=== PATIENT | male | born 1990 ===

== ENCOUNTER 2024-09-15 13:44 | Emergency (ER) | payer OTHER, SELFPAY ==
[2024-09-15 13:48] VITALS: BP 117/83
[2024-09-15 14:00] VITALS: BP 112/81
[2024-09-15 14:08] VITALS: BMI 23.8
--- NOTE | 2024-09-15 15:12 | ED.GENMED ---
History of Present Illness
<STEPHANIE Yan - Last Filed: 09/16/24 16:02>
General
Chief Complaint: Male Genito-Urinary Symptoms
Source: patient
Exam Limitations: none
Time Seen by Provider: 09/15/24 14:47
Nursing documentation reviewed up to this point in time: agreed with
History of Present Illness
History of Present Illness:
33 yr old male presents to the ED for evaluation. Patient speaks German and language line was used for translation. Patient complains of pain to the left thigh left lateral hip/left groin that wraps urinalysis from for the past several days. He
denies any actual injury but was on a bike 4 days ago and symptoms seem to start after that. He denies any actual trauma. Pain has become increasingly worse to the point where patient can barely walk. He denies any fever/chills/swelling.
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 No back pain.
Review of Systems
<STEPHANIE Yan - Last Filed: 09/16/24 16:02>
Review of Systems
Allergies reviewed?: Yes
All Other Systems: ROS reviewed and negative except as documented in HPI and ROS
Constitutional: Reports no symptoms
EENT: Reports no symptoms
Respiratory: Reports no symptoms
Cardiac: Reports no symptoms
ABD/GI: Reports no symptoms
Musculoskeletal: Reports other (left hip pain /thigh pain /groin pain )
Skin: Reports no symptoms
Psychiatric: Reports no symptoms
Phy Exam
<STEPHANIE Yan - Last Filed: 09/16/24 16:02>
General Physical Exam
General Presentation: no apparent distress
General age: appears stated age
General Skin: warm and dry
General Habitus: normal
General Hydration: appears well hydrated
Neurological Exam
Neurological Exam: alert and oriented x3
Musculoskeletal Exam
Musculoskeletal Exam: other (+ Strong pulses to left lower extremity , ?minimal swelling to left thigh,+ tenderness to left groin and pain with full abduction of left hip; pain with lifting leg off the stretcher and even bending the knee)
Course
<STEPHANIE Yan - Last Filed: 09/16/24 16:02>
Orders/Labs/Results
Orders:
Orders
09/15/24 15:34
Femur, Left 2 View [CR Femur - Left Min 2 Vw] Urgent
Comment:
Reason For Exam: pain
Hip, Left 2-3 Views [CR Hip - LT w/wo Pel 2-3 Vw*] Urgent
Comment:
Reason For Exam: pain
Include a pelvis x-ray?: Yes
Venous Doppler Lwr Ext Left [US Periph Venous LOWER Ext LT] Urgent
Comment:
Reason For Exam: pain
09/15/24 16:53
CT Lower Ext W/iv Cont Lt Urgent
Comment:
Reason For Exam: atraumatic left hip/thigh pain mild swelling
09/15/24 16:54
IV Insert/Care/Rem.- Treatment PRN
Ketorolac [Toradol] 15 mg IV NOW STA
09/15/24 17:03
CPK [Creatine Phosphokinase] Urgent
CRP [C-Reactive Protein] Urgent
Complete Blood Count/With Diff Urgent
Comprehensive Metabolic Panel Urgent
ESR [Erythrocyte Sed Rate] Urgent
Lyme Progressive Urgent
Comment: ADD ON
Rheumatoid Agglutinin Urgent
Comment: ADD ON
Uric Acid Urgent
09/15/24 20:21
Add On- LAB Urgent
Tests Added?: lyme progressive, taco,rf,uric acid
Abnormal Lab Results
09/15/24
17:03
Neutrophils % 77.0 H %
(42.2-75.2)
Lymphocytes % 14.2 L %
(20.5-51.1)
ESR 61 H mm/hour
(0-20)
Glucose 112 H mg/dl
(70-99)
C-Reactive Protein 140.20 H mg/L
(0.0-10.00)
09/15/24 17:03
09/15/24 17:03
Vital Signs
Initial and Last Documented VS:
Initial Vital Signs
Temp Pulse Resp BP Pulse Ox
97.5 F 105 18 117/83 100
09/15/24 13:48 09/15/24 13:48 09/15/24 13:48 09/15/24 13:48 09/15/24 13:48
Last Documented Vital Signs
Temp Pulse Resp BP Pulse Ox
97.5 F 96 18 114/67 97
09/15/24 13:48 09/15/24 20:32 09/15/24 20:32 09/15/24 20:32 09/15/24 20:32
Auto Battery Builder consulted with Physician
Auto Battery Builder consulted with physician?: Yes
Name of Physician Consulted: Braeden
<Fortunato Deras MD - Last Filed: 09/15/24 21:32>
Orders/Labs/Results
Orders:
Orders
09/15/24 15:34
Femur, Left 2 View [CR Femur - Left Min 2 Vw] Urgent
Comment:
Reason For Exam: pain
Hip, Left 2-3 Views [CR Hip - LT w/wo Pel 2-3 Vw*] Urgent
Comment:
Reason For Exam: pain
Include a pelvis x-ray?: Yes
Venous Doppler Lwr Ext Left [US Periph Venous LOWER Ext LT] Urgent
Comment:
Reason For Exam: pain
09/15/24 16:53
CT Lower Ext W/iv Cont Lt Urgent
Comment:
Reason For Exam: atraumatic left hip/thigh pain mild swelling
09/15/24 16:54
IV Insert/Care/Rem.- Treatment PRN
Ketorolac [Toradol] 15 mg IV NOW STA
09/15/24 17:03
CPK [Creatine Phosphokinase] Urgent
CRP [C-Reactive Protein] Urgent
Complete Blood Count/With Diff Urgent
Comprehensive Metabolic Panel Urgent
ESR [Erythrocyte Sed Rate] Urgent
Lyme Progressive Urgent
Comment: ADD ON
Rheumatoid Agglutinin Urgent
Comment: ADD ON
Uric Acid Urgent
09/15/24 20:21
Add On- LAB Urgent
Tests Added?: lyme progressive, taco,rf,uric acid
Abnormal Lab Results
09/15/24
17:03
Neutrophils % 77.0 H %
(42.2-75.2)
Lymphocytes % 14.2 L %
(20.5-51.1)
ESR 61 H mm/hour
(0-20)
Glucose 112 H mg/dl
(70-99)
C-Reactive Protein 140.20 H mg/L
(0.0-10.00)
09/15/24 17:03
09/15/24 17:03
Vital Signs
Initial and Last Documented VS:
Initial Vital Signs
Temp Pulse Resp BP Pulse Ox
97.5 F 105 18 117/83 100
09/15/24 13:48 09/15/24 13:48 09/15/24 13:48 09/15/24 13:48 09/15/24 13:48
Last Documented Vital Signs
Temp Pulse Resp BP Pulse Ox
97.5 F 96 18 114/67 97
09/15/24 13:48 09/15/24 20:32 09/15/24 20:32 09/15/24 20:32 09/15/24 20:32
<STEPHANIE Yan - Last Filed: 09/16/24 16:02>
MDM/Problems Addressed
Differential Diagnosis Includes:
Not limited to DVT, muscle strain, bursitis tendinitis less likely fracture
MDM/Problems Addressed:
Ultrasound negative.
Xrays neg for acute findings.
Patient examined by ED physician. Will check blood work including sed rate CRP however no clinical findings consistent with infection on exam. In addition will order CT lower extremity IV contrast.
<STEPHANIE Yan - Last Filed: 09/16/24 16:02>
*Radiology
Radiology exam reviewed: radiology read reviewed
*Pulse Oximetry
Patient hypoxic: no
*Critical Care Note
Total Time (30-74mins, 75-104mins- exclusive of procedures): Not Applicable
ED Attending Note
<STEPHANIE Yan - Last Filed: 09/16/24 16:02>
-
Portions of this chart may have been created with voice recognition software.� Occasional wrong word or��sound alike� substitutions may have occurred due to the inherent limitations of voice recognition software.
<Fortunato Deras MD - Last Filed: 09/15/24 21:32>
ED Attending Note
Patient seen and examined by attending physician: Yes
I performed the substantive portion of visit, reviewed & personally made and approve the management plan that is documented in note by myself or TONYA.: Yes
ED Attending Note:
33-year-old male started 4 days ago with left hip and leg pain. Severe pain with most movement. Increased pain with ambulation. No distal numbness tingling or weakness. No fever. He did take a bike ride prior to this. On exam patient
GENERAL: Alert and oriented in no apparent distress
CARDIAC: Regular rate and rhythm
LUNGS: No respiratory distress
ABDOMEN: Soft, without focal tenderness or distention
NEUROLOGICAL: Alert and oriented , grossly non-focal
SKIN: Warm and dry, no rash or lesion, no discoloration, skin intact.
MUSCULOSKELETAL: No edema,no deformity.Good color. Good distal pulses and color. Distal motor or sensory neurovascular intact. Left calf and lower leg grossly normal. Questionable mild swelling to the left thigh. However no point tenderness.
No erythema or warmth. Some pain with hip rotation but mostly laterally. Pain with hip flexion. No buttock tenderness.
PSYCH: Normal and appropriate interaction.
Impression is left leg pain. Highly doubt acute vascular issue. Suspect bursitis tendinitis possible iliotibial band issue. However with degree of pain and questionable swelling we will check ESR CRP and a CT scan.
Large left hip effusion. No risk factors for septic arthritis. No white count no fever however significant ESR and CRP elevation. Discussed with orthopedics. Patient was recommended to stay in the hospital for arthrocentesis tomorrow. He
refuses to stay and is aware of the risk but will return in the morning for this procedure. I did make IR aware that he would need an arthrocentesis tomorrow
Discharge Plan
Departure
Patient Disposition: Home (Routine Discharge)
Date of Disposition: 09/15/24
Time of Disposition: 20:22
Patient with high blood pressure during this ER visit?: Yes
Discharge Problem:
Left hip effusion
Instructions: BLOOD PRESSURE
Prescriptions:
No Action
No Current Medications
0
Referrals:
Leonardo Loving MD [Family Provider] -
Activity Restrictions/Additional Instructions:
Return early tomorrow morning to get the left hip drainage arranged.
Please return sooner with increasing pain any fever etc.
Interventions
Interventions:
*Risk Screen - Suicide Last Done: 09/15/24 13:48
*General Assessment Last Done: 09/15/24 13:48
*Neglect/Abuse Screening Last Done: 09/15/24 13:48
*ED- Fall Risk Assessment Last Done: 09/15/24 14:10
*Nursing Disposition Last Done: 09/15/24 20:38
ED-Male Genitourinary Assessment Last Done: 09/15/24 14:09
Discharge Date and Time
Discharge Date/Time: 09/15/24 20:38
Print Language: EGYPTIAN
[2024-09-15] MEDS: TORADOL 15 MG IV (17:05)
[2024-09-15 17:08] VITALS: BP 137/83
[2024-09-15 17:18] LABS: % Basophils 0.4 % (0-2); % Eosinophils 0.5 % (0-6); % Immature Granulocytes 0.4 % (0-0.5); % Lymphocytes 14.2 % (20.5-51.1); % Monocytes 7.5 % (1.7-9.3); Absolute Lymphocytes 1.2 10^3/uL (1.2-3.4); Absolute Monocytes 0.6 10^3/uL (0.1-0.6); Absolute Neutrophils 6.2 10^3/uL (1.4-6.5); Hematocrit 42.2 % (39.0-52.0); Hemoglobin 14.8 g/dL (13.0-18.0); Mean Corp Hgb Conc. 35.1 g/dL (33.0-37.0); Mean Corpuscular Hgb 30.9 pg (27.0-31.0); Mean Corpuscular Volume 88.1 fL (80.0-94.0); Mean Platelet Volume 9.4 fL (7.4-10.4); Nucleated Red Blood Cells % 0 % (-); Platelet Count 229 10^3/uL (130-400); Red Blood Cell Count 4.79 10^6/uL (4.70-6.10); Red Cell Dist. Width 12.6 % (11.5-14.5); White Blood Cell Count 8.1 10^3/uL (4.8-10.8)
[2024-09-15 17:30] LABS: ALT (SGPT) 39 U/L (0-50); AST (SGOT) 30 U/L (17-59); Albumin 4.4 g/dl (3.5-5.0); Alkaline Phosphatase 45 U/L (38-126); Blood Urea Nitrogen 11 mg/dl (9-20); Calcium 9.1 mg/dl (8.4-10.2); Carbon Dioxide 29 mmol/L (22-30); Chloride 106 mmol/L (98-107); Creatine Phosphokinase 77 U/L (55-170); Estimated Creatinine Clearance > 125 ml/min; Glucose 112 mg/dl (70-99); Potassium 4.5 mmol/L (3.5-5.1); Sodium 140 mmol/L (135-145); Total Bilirubin 0.9 mg/dl (0.2-1.3); Total Protein 7.7 g/dl (6.3-8.2); eGFR > 60.00
[2024-09-15 17:31] LABS: Erythrocyte Sed Rate 61 mm/hour (0-20)
[2024-09-15 20:32] VITALS: BP 114/67
[2024-09-15 20:51] LABS: Uric Acid 3.6 mg/dl (3.5-8.5)
[2024-09-16 11:22] LABS: Rheumatoid Agglutinin Less Than 10 IU (<10 IU)
[2024-09-16 13:11] LABS: Lyme Antibody Screen, EIA Negative (Negative)
== END 2024-09-15 20:38 | disposition home or self-care (01) ==
LOC: EMR 13:44
PROVIDERS: Nurse Practitioner; EMERGENCY PHYSICIAN Emergency Medicine; FAMILY PHYSICIAN Family Medicine
DX: M25.452 Effusion, left hip (principal); M79.652 Pain in left thigh; R10.30 Lower abdominal pain, unspecified; M79.89 Other specified soft tissue disorders; R26.2 Difficulty in walking, not elsewhere classified; R03.0 Elevated blood-pressure reading, without diagnosis of hypertension
CPT/HCPCS: 99285; 96374; 73502; 73552; 73701; 80053; 82550; 84550; 85025; 85652; 86140; 86430; 86618; 93971; Q9967

== ENCOUNTER 2024-09-16 15:28 | Inpatient (IN) | payer OTHER, SELFPAY ==
[2024-09-16 07:01] VITALS: BP 104/77
--- NOTE | 2024-09-16 07:35 | ED.GENMED ---
History of Present Illness
General
Chief Complaint: Musculo-Skeletal Complaint
Source: patient and records
Exam Limitations: none
Time Seen by Provider: 09/16/24 06:59
Nursing documentation reviewed up to this point in time: agreed with
History of Present Illness
History of Present Illness:
33-year-old male with no reported chronic medical issues presents to the emergency room with left hip pain. Patient was seen yesterday for left hip/groin pain and had extensive workup including blood work and imaging; he was found to have elevated
inflammatory markers and a left joint effusion on imaging and was recommended for arthrocentesis after discussion with orthopedics. Patient did not wish to stay in hospital and opted instead to leave the emergency department with a plan to return
this morning for arthrocentesis. He says that since leaving the emergency room his left hip pain has slightly improved�yesterday he could not even walk and today he can walk although still has significant amount of pain. He has not had fever or
chills. He denies any injury or trauma but does note that the day before onset of symptoms he was riding his bike with his kids. He denies having had similar issues in the past.
Review of Systems
Review of Systems
All Other Systems: ROS reviewed and negative except as documented in HPI and ROS
Constitutional: Denies fever or chills
Musculoskeletal: Reports joint pain
Phy Exam
Physical Exam
Physical Exam:
General: Awake, alert; no acute distress
Head: Normocephalic, atraumatic
Eyes: Conjunctiva normal
Throat: Airway intact, handling secretions
Neck: Trachea midline
Lungs: Clear to auscultation bilaterally, no wheezing, rales, rhonchi
Heart: Regular rate and rhythm, no murmurs, gallops, or rubs
Neuro: No gross deficits
Skin: no rash in area of concern
Extremities: No edema in extremities, equal pulses in all extremities�specifically strong femoral, popliteal, DP and PT pulses in the left lower extremity; he has pain with any attempts at range of motion in the left hip but maximally with external
rotation and flexion; he has no reproducible tenderness in the inguinal crease or over the greater trochanter; no warmth or erythema in the region
Scores
Heart Failure Risk
Heart Failure Risk Score: Not Applicable
Heart Score for Chest Pain Patients
STEMI patient?: Not applicable
Withdrawal Assessment of Alcohol
Withdrawal Assessment Completed?: Not applicable
Course
Orders/Labs/Results
Orders:
Orders
09/16/24 06:59
Body Fluid Cell Count Urgent
What is the Body Fluid: joint
Date Specimen was Collected: 09/16/24
Time Specimen was Collected: 11:37
Comment: with DIFF
Body Fluid Crystals Urgent
What is the Body Fluid: joint
Date Specimen was Collected: 09/16/24
Time Specimen was Collected: 11:37
Body Fluid Glucose Urgent
Fluid Source: Other
Date Specimen was Collected: 09/16/24
Time Specimen was Collected: 11:37
Fluid Culture with Gram Stain Urgent
YEYO Source: Joint Fluid
Specimen Description:
Date Specimen was Collected: 09/16/24
Time Specimen was Collected: 11:37
09/16/24 07:01
IRAD CONSULT Urgent
Consulting Provider: Rom Hernandez
Was physician already notified: Yes
Procedure being ordered, including laterality if applicable: left hip arthrocentesis
Acknowledgement that appropriate orders are entered: Yes
09/16/24 07:31
CRP [C-Reactive Protein] Urgent
Complete Blood Count/With Diff Urgent
Comprehensive Metabolic Panel Urgent
ESR [Erythrocyte Sed Rate] Urgent
Blood Culture Q30M
YEYO Source: Blood/Venous
Specimen Description:
Blood Culture Q30M
YEYO Source: Blood/Venous
Specimen Description:
09/16/24 11:27
Lidocaine 2% [Xylocaine 2% Mdv] 20 ml .ROUTE .[facility]
09/16/24 13:24
CefTRIAXone [Rocephin] 1,000 mg IV NOW STA
09/16/24 13:48
Vancomycin [Vancocin] 2,000 mg 0.9% Sodium Chloride 500 ml [Nss] 500 ml IV NOW
09/16/24 13:54
Sterile Water [Sterile Water For Injection] 10 ml .ROUTE .[facility]
Abnormal Lab Results
09/16/24
07:31
Lymphocytes % 17.5 L %
(20.5-51.1)
ESR 61 H mm/hour
(0-20)
Glucose 117 H mg/dl
(70-99)
ALT 53 H U/L
(0-50)
C-Reactive Protein 83.20 H mg/L
(0.0-10.00)
09/16/24 07:31
09/16/24 07:31
Vital Signs
Initial and Last Documented VS:
Initial Vital Signs
Temp Pulse Resp BP Pulse Ox
36.7 C 110 16 104/77 98
09/16/24 07:01 09/16/24 07:01 09/16/24 07:01 09/16/24 07:01 09/16/24 07:01
Last Documented Vital Signs
Temp Pulse Resp BP Pulse Ox
36.6 C 76 14 114/76 99
09/16/24 11:10 09/16/24 11:50 09/16/24 11:50 09/16/24 11:10 09/16/24 11:10
MDM/Problems Addressed
Differential Diagnosis Includes:
Bursitis, arthritis�including septic arthritis, inflammatory arthritis, osteoarthritis; torn labrum, groin strain, sciatica
MDM/Problems Addressed:
33-year-old male presents for evaluation of left hip pain as described above�found to have joint effusion on workup yesterday with elevated inflammatory markers and was recommended for admission to have arthrocentesis; he opted instead to leave the
ER and returned this morning for procedure. He says symptoms have generally improved since then but still quite intense. He is tachycardic but otherwise has normal vitals. Physical exam as above. Will check labs to trend including CBC, CMP,
inflammatory markers. Will send blood cultures. Discussed case with interventional radiology for arthrocentesis. Will reassess after the above.
Repeat labs reviewed: CBC shows no leukocytosis, ESR and CRP are still elevated. CMP unremarkable. Patient on scheduled for interventional radiology�arthrocentesis is pending.
Fluid analysis reviewed: WBC 41,000 with 82% neutrophils. Crystal analysis negative. Discussed with orthopedist�suspect septic arthritis less likely with WBC less than 50,000 but culture would be definitive. Discussed with infectious disease�most
conservative approach would be to treat empirically pending culture results. Case discussed with hospitalist for admission. Will cover with antibiotics pending results of blood/aspirate culture.
*Radiology
Radiology exam reviewed: radiology read reviewed (Reviewed imaging from yesterday-CT hip shows large left joint effusion, DVT study was negative, x-rays nondiagnostic)
*Pulse Oximetry
Patient hypoxic: no
*Critical Care Note
Total Time (30-74mins, 75-104mins- exclusive of procedures): Not Applicable
Data Reviewed
Review of Other/Old Records Reveals: Labs
Source: patient and records
Patient Management
Discussion with other providers: Hospitalist (Discussed with hospitalist) and Shipping And Receiving Coordinator (Discussed with interventional radiologist, discussed with orthopedist, discussed with infectious disease)
Escalation/DeEscalation of care consider admission/obs:
Admission indicated
ED Attending Note
-
Portions of this chart may have been created with voice recognition software.� Occasional wrong word or��sound alike� substitutions may have occurred due to the inherent limitations of voice recognition software.
Discharge Plan
Departure
Patient Disposition: Admit
Date of Disposition: 09/16/24
Time of Disposition: 14:17
Admit to doctor: Yu
Presentation/result/management discussed w/ accepting MD/DO: Hospitalist
Discharge Problem:
Septic arthritis
Prescriptions:
No Action
No Current Medications
0
Referrals:
Leonardo Loving MD [Family Provider] -
Interventions
Interventions:
*Risk Screen - Suicide Last Done: 09/16/24 07:01
*General Assessment Last Done: 09/16/24 07:12
*Neglect/Abuse Screening Last Done: 09/16/24 07:01
*ED- Fall Risk Assessment Last Done: 09/16/24 07:12
*ED COVID-19 Vaccine History Last Done: 09/16/24 07:12
ED-Musculoskeletal Assessment Last Done: 09/16/24 07:12
Discharge Date and Time
Print Language: UKRAINIAN
[2024-09-16 07:49] LABS: % Basophils 0.4 % (0-2); % Eosinophils 1.3 % (0-6); % Immature Granulocytes 0.1 % (0-0.5); % Lymphocytes 17.5 % (20.5-51.1); % Monocytes 8.7 % (1.7-9.3); Absolute Eosinophils 0.1 10^3/uL (0-0.7); Absolute Lymphocytes 1.3 10^3/uL (1.2-3.4); Absolute Monocytes 0.6 10^3/uL (0.1-0.6); Absolute Neutrophils 5.1 10^3/uL (1.4-6.5); Hemoglobin 14.6 g/dL (13.0-18.0); Mean Corp Hgb Conc. 34.8 g/dL (33.0-37.0); Mean Corpuscular Hgb 30.9 pg (27.0-31.0); Mean Platelet Volume 9.6 fL (7.4-10.4); Nucleated Red Blood Cells % 0 % (-); Platelet Count 245 10^3/uL (130-400); Red Blood Cell Count 4.72 10^6/uL (4.70-6.10); Red Cell Dist. Width 12.4 % (11.5-14.5); White Blood Cell Count 7.1 10^3/uL (4.8-10.8)
[2024-09-16 07:58] LABS: ALT (SGPT) 53 U/L (0-50); AST (SGOT) 38 U/L (17-59); Albumin 4.1 g/dl (3.5-5.0); Alkaline Phosphatase 49 U/L (38-126); Blood Urea Nitrogen 12 mg/dl (9-20); Carbon Dioxide 29 mmol/L (22-30); Chloride 107 mmol/L (98-107); Glucose 117 mg/dl (70-99); Sodium 141 mmol/L (135-145); Total Bilirubin 0.8 mg/dl (0.2-1.3); Total Protein 7.5 g/dl (6.3-8.2); eGFR > 60.00
[2024-09-16 08:36] LABS: Erythrocyte Sed Rate 61 mm/hour (0-20)
[2024-09-16 11:10] VITALS: BP 114/76; BP_SYST 74
[2024-09-16 12:53] LABS: Body Fluid Mononuclear 17.4 %; Body Fluid Polymorphonuclear 82.6 %; Body Fluid WBC 41380 /CUMM
[2024-09-16 13:14] LABS: Body Fluid Second Tech EM
[2024-09-16 13:45] VITALS: BMI 23.4
--- NOTE | 2024-09-16 14:21 | HPS.HSE ---
Addendum entered and electronically signed by Aarti Bustillos MD 09/16/24 15:31:
see update note
Original Note:
Family Physician
-
Family Physician: Leonardo Loving MD
Chief Complaint
-
left hip pain
History of Present Illness
33-year-old male with no reported chronic medical issues presents to the emergency room with left hip pain for pat 4-5 days. the pain progressively got worse and he was not able to walk. Patient was seen yesterday for left hip/groin pain and had
extensive workup including blood work and imaging; he was found to have elevated inflammatory markers and a left joint effusion on imaging and was recommended for arthrocentesis after discussion with orthopedics. Patient did not wish to stay in
hospital and opted instead to leave the emergency department with a plan to return this morning for arthrocentesis. he came back today due to worsening pain. He has not had fever or chills. He denies any injury or trauma but does note that the day
before onset of symptoms he was riding his bike with his kids.denied POLLOKC, dizzy or syncope. denied abdominal pain,n,v,d. denied dysuria or hematuria.
patient underwent arthrocentesis today. culture sent from ER. patient received ceftriaxone and vanco. admitting for further management.
Medical History
Past Medical History
Past Medical History: Reports None
Past Surgical History: Reports None
Social History
Tobacco: Non-smoker
Alcohol: None
Drug: None
Living: With Family
Family History
Family History: Not pertinent
Allergies / Home Medications
Allergies reflects when Allergies were last updated in [email or web address] [facility] [employer]
Home Medications with original date entered in [email or web address] [facility] [employer])
Allergy/Medication List:
Allergies
Allergy/AdvReac Type Severity Reaction Status Date / Time
No Known Allergies Allergy Verified 09/16/24 07:02
Home Medications
No Meds [No Current Medications] 09/15/24
Review of Systems
-
Constitutional: Reports No Symptoms
EENT: Reports No Symptoms
Respiratory: Reports No Symptoms
Cardiac: Reports No Symptoms
Abdomen/GI: Reports No Symptoms
: Reports No Symptoms
Musculoskeletal: Reports Other (left hip and groin pain)
Skin: Reports No Symptoms
Neurological: Reports No Symptoms
Endocrine: Reports No Symptoms
Hematologic/Lymphatic: Reports No Symptoms
Psych: Reports No Symptoms
Physical Exam
Vital Signs
Vital Signs
Temp Pulse Resp BP Pulse Ox
97.8 F 76 14 114/76 99
09/16/24 11:10 09/16/24 11:50 09/16/24 11:50 09/16/24 11:10 09/16/24 11:10
Physical Exam
General: Well Developed, Well Nourished and No Apparent Distress
HEENT: NormoCephalic, Moist mucous membranes and Atraumatic
Respiratory: Clear
Cardiac: S1/S2 and Regular Rhythm; No Murmur or Rub
GI: Soft, Non Tender, Non Distended and Normal Bowel Sounds; No Organomegaly
Rectal: Deferred by Provider
Musculoskeletal: No Clubbing, No Cyanosis and No Edema
Skin: No Rash
Neuro: AO x 3 and Nonfocal/grossly intact
Psych: Calm
Laboratory Results
-
09/16/24 07:31
09/16/24 07:31
Laboratory Results
Total Bilirubin 0.8 mg/dl (0.2-1.3) 09/16/24 07:31
AST 38 U/L (17-59) 09/16/24 07:31
ALT 53 U/L (0-50) H 09/16/24 07:31
Alkaline Phosphatase 49 U/L (38-126) 09/16/24 07:31
Data Reviewed
-
CT Scan: Report Reviewed by me
Lab Data: Labs Reviewed by me
Impression/Plan
-
# Left hip pain.effusion concern for septic arthritis
- ESR, CRP elevated
- Joint effusion drained by IR
- Cultures send off off blood and aspirate
- Vanco and ceftriaxone continued
-ID consulted
-Tylenol tramadol and oxy
-CT from yesterday with the impression of There is a moderate to large left hip joint effusion. 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
#DVT prophylaxis
-Lovenox
#CODE status
-full code
[2024-09-16] MEDS: ROCEPHIN 1000 MG IV (14:23)
[2024-09-16] MEDS: VANCOCIN 540 MG IV (14:25)
--- NOTE | 2024-09-16 15:31 | W.PN.UPDATE ---
Update Note
Progress Note Update
I saw and examined the patient.
The FINANCIAL SYSTEMS MANAGER David's note was reviewed and I agree with the note.
Comment: 33 y/o M, no PMH, presenting to ER again for arthrocentesis procedure. He presented yesterday to ER and recommended to stay for procedure but opted to leave. He presented 09/15 with L thigh/lateral hip/groin pain. No injuries/trauma/prior
procedures/hardware. Only associated activity was riding his back. Patient reported pain was severe to point of limiting walking. No fever/chills.
in ER, found to have ESR and CRP elevated and IR aspirated joint, c/f septic joint. ID recommended IV Abx.
Physical Exam
General: Well Developed, Well Nourished and No Apparent Distress
HEENT: Normocephalic, Moist mucous membranes and Atraumatic
Respiratory: Clear
Cardiac: S1/S2 and Regular Rhythm; No Murmur or Rub
GI: Soft, Non Tender, Non Distended and Normal Bowel Sounds; No Organomegaly
Rectal: Deferred by Provider
Musculoskeletal: No Clubbing, No Cyanosis and No Edema
Skin: No Rash
Neuro: AO x 3 and Nonfocal/grossly intact
Psych: Calm
Assessment:
L hip pain, effusion with possible septic arthritis
- CT: moderate to large left hip joint effusion
- s/p IR aspiration 09/16; WBC 51595, no crystals. pending fluid and blood cultures. Empiric IV Vanco/Rocephin. ID consulted
- pain control
- PT
- may need ortho eval if cultures +
DVT ppx: Lovenox
Code: Full
[2024-09-16 16:03] VITALS: BP 117/63
[2024-09-16 17:00] VITALS: BP 111/76
[2024-09-16 17:10] VITALS: BMI 22.3
--- NOTE | 2024-09-16 17:23 | PHA.VAN.IN ---
Assessment
- Assessment
Renal Function: Unknown baseline
Concomitant Antimicrobials: ROCEPHIN
SEE JOINT FLUID CULTURE
- Previous Dosing Experience
Previous Regimen: NONE
AUC Dosing Plan
- Dosing Variables
Dosing Weight (kg): 74.7
Dosing CrCl (ml/min): 122
Vd coefficient (L/kg): 0.7
- Empiric Dosing
Initial / Loading Dose: 2GM
Maintenance Regimen: 750MG IV Q8H
Estimated AUC (mcg*h/mL): 429
Estimated Peak (mcg*h/mL): 25.1
Estimated Trough (mcg/ml): 12
Estimated Half Life (H): 6.6
Pharmacokinetics Vancomycin I
- -
Patient Age: 33
Patient Sex: Male
Vancomycin Day #: 1
Indication: [facility] (SEPTIC ARTHRITIS [L] HIP)
Height / Weight:
Height 6 ft
Actual Weight 74.661 kg
- Vital Signs / Lab Results
Temp Pulse Resp BP Pulse Ox
97.5 F 92 18 111/76 100
09/16/24 17:00 09/16/24 17:00 09/16/24 17:00 09/16/24 17:00 09/16/24 17:00
Lab Results - Hematology
09/16/24
07:31
WBC 7.1
Lab Results - Chemistry
09/16/24
07:31
BUN 12
Creatinine 0.9
Albumin 4.1
Microbiology Results
09/16/24 06:59 Gram Stain - Preliminary
Joint Fluid
--- NOTE | 2024-09-16 18:18 | W.PN.UPDATE ---
Update Note
Progress Note Update
Patient seen and examined this evening. Chart reviewed. Complaining of left groin pain. Denies fevers or chills. Complaining of 5 days of progressive pain.
Afebrile elevated inflammatory markers. Cultures pending
33-year-old male with left hip effusion status post arthrocentesis
Synovial white blood cell count concerning for inflammatory process. Low index of septic joint given clinical presentation and synovial white blood cell count. Will continue to follow. Certainly if there is any positive cultures, would require
surgical intervention form of arthrotomy/irrigation debridement left hip.
Formal consult note to follow
[2024-09-16] MEDS: LOVENOX 40 MG SC (20:16)
[2024-09-16 23:45] VITALS: BP 103/69
[2024-09-17] MEDS: VANCOCIN 150 IV ×2 (05:20→13:45)
[2024-09-17 07:14] LABS: Hematocrit 41.8 % (39.0-52.0); Hemoglobin 14.3 g/dL (13.0-18.0); Mean Corp Hgb Conc. 34.2 g/dL (33.0-37.0); Mean Corpuscular Volume 90.5 fL (80.0-94.0); Mean Platelet Volume 9.3 fL (7.4-10.4); Platelet Count 273 10^3/uL (130-400); Red Blood Cell Count 4.62 10^6/uL (4.70-6.10); Red Cell Dist. Width 12.4 % (11.5-14.5); White Blood Cell Count 6.2 10^3/uL (4.8-10.8)
[2024-09-17 07:46] VITALS: BP 110/69
[2024-09-17 07:46] LABS: Blood Urea Nitrogen 15 mg/dl (9-20); Calcium 9.1 mg/dl (8.4-10.2); Carbon Dioxide 28 mmol/L (22-30); Chloride 106 mmol/L (98-107); Estimated Creatinine Clearance 122 ml/min; Glucose 139 mg/dl (70-99); Potassium 4.6 mmol/L (3.5-5.1); Sodium 140 mmol/L (135-145); eGFR > 60.00
[2024-09-17 07:47] LABS: Erythrocyte Sed Rate 53 mm/hour (0-20)
--- NOTE | 2024-09-17 08:11 | PHA.VAN.FU ---
Vancomycin Assessment / Plan
- Assessment
Renal Function: Stable
WBC's are: WNL
In the past 24 hrs, patient has been: Afebrile
Concomitant Antimicrobials: ceftriaxone
- Dosing Plan
Continue: Vanc 750mg Q8H
- Monitoring Plan
No level(s) ordered at this time: consider levels in next few days
- Follow Up
Pharmacy will continue to follow.
Vancomycin Follow UP
- -
Patient Age: 33
Patient Sex: Male
Vancomycin Day #: 2
Indication: Bone And Joint
Requesting Provider: Violette Hernandez
Pertinent Antimicrobial Allergies:
NKDA
Height / Weight:
Height 6 ft
Actual Weight 74.661 kg
- Vital Signs / Lab Results
Temp Pulse Resp BP Pulse Ox
98.9 F 82 14 110/69 99
09/17/24 07:46 09/17/24 07:46 09/17/24 07:46 09/17/24 07:46 09/17/24 07:46
Lab Results - Hematology
09/16/24 09/17/24
07:31 06:51
WBC 7.1 6.2
Lab Results - Chemistry
09/16/24 09/17/24
07:31 06:51
BUN 12 15
Creatinine 0.9 0.9
Estimated Creat Clear 122
Albumin 4.1
Microbiology Results
09/16/24 07:31 Blood Culture - Preliminary
Blood/Venous No Growth in 24 hours- Final report to follow
09/16/24 07:31 Blood Culture - Preliminary
Blood/Venous No Growth in 24 hours- Final report to follow
09/16/24 06:59 Gram Stain - Preliminary
Joint Fluid
--- NOTE | 2024-09-17 12:41 | CM ---
Met with patient at bedside; initial assessment completed with the assistance of [employer] in patient's room
Pharmacy verified: [facility] @ [id number]
Patient lives w/ ; multilevel home; 3-4 steps to enter; 12 steps to 2nd floor bath; railings on stairs; powder room 1st floor; 2nd floor bath has stall shower
PLOF: independent with ambulation, stairs, and ADLs; works multimedia educational specialist delivery truck driver;
DME: none
Plan: discharge to home when medically stable; CM will monitor for needs
[2024-09-17] MEDS: ROCEPHIN 1000 MG IV (13:45)
[2024-09-17] MEDS: STERILE WATER FOR INJECTION 10 ML IV (13:45)
--- NOTE | 2024-09-17 14:58 | CON.ID ---
Consultation
-
Date/Time Consultation Requested: 09/16/2024 1539
Date/Time Consultation Performed: 09/17/2024 1420
Requesting Provider: Dr. Bustillos
Performing Provider: Dr. Xiong
Reason for Consultation: Left hip septic joint
Chief Complaint / Past History
History of Present Illness
Omer Marks is a 33-year-old [facility] male being evaluated at the request of Dr. Bustillos regarding left hip pain. History is obtained from chart review, along with patient interview via bell attendant phone.
The patient reports he was in his usual state of health until approximately 6 days ago (4 to 5 days prior to admission) when he began to develop left hip pain. He denies any prior history of pain or trauma, and only notes that he had been out in
his garden riding his bike and playing with his children. Pain persisted, until he found it difficult to walk and he presented to the emergency room on 09/15. He underwent aspiration of the joint, and found to have a significant leukocytosis. He
was offered admission, but preferred to go home, but returns on 09/16 after ongoing pain.. He has been started on empiric antibiotics.
He notes no prior history of similar symptomatology. He denies any recent fall or trauma to the area. He denies any prior fevers or chills before the onset of symptomatology. He denies seeing any ticks on him, and denies any history of rash.
Currently he reports his pain is 4/10.
Past History
Past Medical History: None
Past Surgical History: None
Allergy History:
No Known Allergies Allergy (Verified 09/16/24 07:02)
Medications Reviewed: Yes
Current Antibiotics:
Vancomycin
Rocephin
Social History
Tobacco: Non-Smoker
Alcohol: None
Drug: None
Personal:
Living: With Family
Employment: Employed
Family History
Family History: Not Pertinent
Review of Systems
Vital Signs
Temp Pulse Resp BP Pulse Ox
98.9 F 82 14 110/69 99
09/17/24 07:46 09/17/24 07:46 09/17/24 07:46 09/17/24 07:46 09/17/24 07:46
Physical Exam
Physical Exam
Constitutional: No Acute Distress, Comfortable and Non-toxic
Eyes: No Conjunctival Hemorrhage and Sclera Anicteric
Oral: No Thrush and No Ulcers
Cardiovascular: Regular Rate and S1/S2; Negative S3/S4
Pulmonary: Clear; Negative Wheezes or Rales
Gastrointestinal: Soft, Non Tender and Non Distended
Genito-Urinary: Negative Marquez
Extremities: Negative Edema, Cyanosis or Erythema
Musculoskeletal: Other (left hip discomfort with palpation.)
Skin: Warm; Negative Rash or Jaundice
Neurological: Awake and Alert
Psychological: Calm
Lab / Diagnostic Study Results
09/17/24 06:51
09/17/24 06:51
Abs Immat Gran (auto) 0.0 10^3/uL (0-0.05) 09/16/24 07:31
Absolute Neuts (auto) 5.1 10^3/uL (1.4-6.5) 09/16/24 07:31
Absolute Lymphs (auto) 1.3 10^3/uL (1.2-3.4) 09/16/24 07:31
Absolute Monos (auto) 0.6 10^3/uL (0.1-0.6) 09/16/24 07:31
Absolute Basos (auto) 0.0 10^3/uL (0-0.2) 09/16/24 07:31
Immature Gran % 0.1 % (0-0.5) 09/16/24 07:31
Neutrophils % 72.0 % (42.2-75.2) 09/16/24 07:31
Lymphocytes % 17.5 % (20.5-51.1) L 09/16/24 07:31
Monocytes % 8.7 % (1.7-9.3) 09/16/24 07:31
Eosinophils % 1.3 % (0-6) 09/16/24 07:31
Basophils % 0.4 % (0-2) 09/16/24 07:31
ESR 53 mm/hour (0-20) H 09/17/24 06:51
C-Reactive Protein 67.80 mg/L (0.0-10.00) H 09/17/24 06:51
Microbiology Results
Micro:
09/16/24 06:59 Body Fluid Culture - Preliminary
Joint Fluid No Growth After 18-24 Hours
Gram Stain - Preliminary
09/16/24 07:31 Blood Culture - Preliminary
Blood/Venous No Growth in 24 hours- Final report to follow
09/16/24 07:31 Blood Culture - Preliminary
Blood/Venous No Growth in 24 hours- Final report to follow
Imaging:
09/15/2024 CT lower extremity: Moderate to large left hip joint effusion. Large left-sided varicocele.
Assessment / Plan
Left hip pain
Suspected left hip septic arthritis
Elevated ESR
Elevated CRP
Recommendations:
Cultures currently pending, but negative to date.
Continue with ceftriaxone. Discontinue further vancomycin for the present.
Check MRI of the left hip.
CRP noted to be rapidly improving, which makes infection somewhat less likely.
Would have low threshold to ultimately discontinue antibiotics and observe.
Care Review
Plan reviewed with: Physician (Hospitalist) and Radiologist
[2024-09-17 15:07] VITALS: BP 117/71
--- NOTE | 2024-09-17 15:33 | W.PN.HOSP.TC ---
Today's Communication/Plan
-
MRI
Rocephin pending culture
Lyme testing
PT
pain control
Assessment / Plan
Assessment / Plan
Assessment:
L hip pain, effusion with possible septic arthritis
- CT: moderate to large left hip joint effusion
- s/p IR aspiration 09/16; WBC 92401, no crystals. pending fluid and blood cultures. Empiric IV Rocephin. ID following
- Lyme testing
- check MRI of L hip
- CRP improving rapidly
- pain control
- PT
- may need ortho eval if cultures +. They are peripherally following
DVT ppx: Lovenox
Code: Full
Anticipated Discharge: Within 24 hours
Subjective/Interval History
-
Date of Service: September 17, 2024
L hip pain improving, now 4/10 previously stronger
able to ambulate without difficulty
Objective Data
-
Labs:
Laboratory Results
09/17/24
06:51
WBC 6.2
Hgb 14.3
Hct 41.8
Plt Count 273
Sodium 140
Potassium 4.6
Chloride 106
Carbon Dioxide 28
BUN 15
Creatinine 0.9
Glucose 139 H
Calcium 9.1
Vital Signs:
Vital Signs
Temp Pulse Resp BP Pulse Ox
98.4 F 90 16 117/71 100
09/17/24 15:07 09/17/24 15:07 09/17/24 15:07 09/17/24 15:07 09/17/24 15:07
I&O
09/16/24 09/17/24 09/18/24
06:59 06:59 06:59
Intake Total 660 / 660
Balance 660 / 660
Physical Exam
-
General: No Apparent Distress
HEENT: Normocephalic and Atraumatic
Respiratory: Negative Wheezes or Rales
Cardiac: Regular Rhythm and S1/S2
GI: Soft and Nontender
Musculoskeletal: Other (left hip discomfort with palpation)
Neuro: AO x 3
Hematologic / Lymphatic: No Lymphadenopathy
Psych: Calm
Data Reviewed
-
Total Time Spent with Patient (in minutes): 42
Labs: Labs Reviewed by me
--- NOTE | 2024-09-17 16:40 | CON.ORTHO ---
Consultation
-
Date/Time Consultation Performed: 09/16/2024 630 pm
Consultation - Orthopedics
History
HPI: 33-year-old male presented to the emergency department with complaints of left hip pain and difficulty bearing weight. He was ultimately admitted to the hospital service after undergoing an aspiration of left hip effusion for concern for
septic arthritis. Orthopedics is consulted for further evaluation and treatment. Patient initially presented to emergency department yesterday. The emergency department reached out to the on-call orthopedist who recommended an aspiration of the
hip. Patient was unable to stay for the aspiration returned the following day to undergo aspiration of left hip effusion that was found on CT scan. This evening patient localizes pain to the left groin. Reports that he denies any fevers or chills
at home. Reports no similar symptoms in the past. Denies any previous trauma.
Allergies / Home Medications
Past medical history: None reported
Past surgical history: None reported
Social history: Non-smoker, lives with family
Family history: Not pertinent
Allergy/AdvReac Type Severity Reaction Status Date / Time
No Known Allergies Allergy Verified 09/16/24 07:02
�Medication �Instructions �Recorded
No Meds [No Current Medications] 09/15/24
Vital Signs / Lab Results
Temp Pulse Resp BP Pulse Ox
98.4 F 90 16 117/71 100
09/17/24 15:07 09/17/24 15:07 09/17/24 15:07 09/17/24 15:07 09/17/24 15:07
09/17/24 06:51
09/17/24 06:51
10 point review systems reviewed and negative unless otherwise stated
General: Uncomfortable in appearance at rest, nontoxic appearing, somewhat uncomfortable with motion of the left hip
Musculoskeletal left lower extremity
Skin intact, no erythema or ecchymotic staining
No significant palpable warmth over the hip
I am able to flex the patient's hip about 90 degrees externally rotate about 60 degrees with some moderate discomfort
There is some tenderness palpation over the groin
Patient does have difficulty of with straight leg raise secondary to pain in the groin
No palpable ipsilateral knee effusion
No gross motor or sensory deficits distally
Diagnostic studies
CT scan of left hip reviewed. There is evidence of effusion. Radiographs were also reviewed of the hip. There is evidence of some erosions femoral head neck junction. No femoral head collapse or obvious evidence of avascular necrosis
Assessment / Plan
33-year-old male atraumatic onset left hip pain with associated effusion. Aspirate results have not yielded any positive cultures. Synovial white blood cell count 41,000 less concerning for infection work concerning for inflammatory arthropathy.
No obvious avascular necrosis or collapse of femoral head on radiographs although could consider obtaining an MRI to better characterize possible avascular necrosis as a source of hip pain. I will continue to follow the cultures. Certainly if
anything is positive, would recommend arthrotomy with irrigation debridement of the left hip. CRP is trending downward currently. Will continue to follow lab results. Please reach out any questions or concerns
[2024-09-17] MEDS: LOVENOX 40 MG SC (17:30)
[2024-09-17 23:52] VITALS: BP 107/66
[2024-09-18 06:07] LABS: Hematocrit 41.2 % (39.0-52.0); Hemoglobin 14.1 g/dL (13.0-18.0); Mean Corp Hgb Conc. 34.2 g/dL (33.0-37.0); Mean Corpuscular Hgb 30.7 pg (27.0-31.0); Mean Corpuscular Volume 89.8 fL (80.0-94.0); Mean Platelet Volume 9.2 fL (7.4-10.4); Platelet Count 286 10^3/uL (130-400); Red Blood Cell Count 4.59 10^6/uL (4.70-6.10); Red Cell Dist. Width 12.2 % (11.5-14.5); White Blood Cell Count 6.9 10^3/uL (4.8-10.8)
[2024-09-18 06:33] LABS: Blood Urea Nitrogen 15 mg/dl (9-20); Calcium 9.2 mg/dl (8.4-10.2); Carbon Dioxide 32 mmol/L (22-30); Chloride 105 mmol/L (98-107); Estimated Creatinine Clearance 110 ml/min; Glucose 126 mg/dl (70-99); Potassium 4.5 mmol/L (3.5-5.1); Sodium 141 mmol/L (135-145); eGFR > 60.00
[2024-09-18 07:02] VITALS: BP 104/75
[2024-09-18] MEDS: TYLENOL 650 MG PO (07:35)
[2024-09-18 08:11] LABS: ALT (SGPT) 54 U/L (0-50); AST (SGOT) 27 U/L (17-59); Albumin 3.9 g/dl (3.5-5.0); Alkaline Phosphatase 54 U/L (38-126); LDH 149 U/L (120-246); Total Bilirubin 0.4 mg/dl (0.2-1.3); Total Protein 6.9 g/dl (6.3-8.2)
[2024-09-18 08:23] LABS: Creatine Phosphokinase 36 U/L (55-170)
--- NOTE | 2024-09-18 08:25 | W.PN.ID1 ---
Date of Service
Date of Service: September 18, 2024
Today's Communication
09/16 blood cultures x2 no growth to date
Continue with ceftriaxone.
MRI L hip possible myositis, no abscess; effusion is moderate to large
Close follow up with Dr Xiong and rheumatology
Assessment / Plan
Left hip pain
Suspected left hip septic arthritis
Elevated ESR
Elevated CRP
Recommendations:
Lyme serology 09/15 negative; added lyme PCR to synovial fluid
myositis panel was sent per IM service
synovial fluid currently NG at 48 hours - reviewed with microbiology lab
09/16 blood cultures x2 no growth to date
Continue with ceftriaxone.
MRI L hip possible myositis, no abscess; effusion is moderate to large
Close follow up with Dr Xiong and rheumatology
Chief Complaint
-: Other (hip effusion)
Subjective / Review of Systems
remains afebrile
BP stable
no events overnight
assessed patient with [employer] paraoptometric [id number]
reports notable improvement in hip pain since arrival - 'I wasnt able to walk before I came in'
Vital Signs / Physical Exam
Vital Signs
Vital Signs
Temp Pulse Resp BP Pulse Ox
98.2 F 85 18 104/75 99
09/18/24 07:02 09/18/24 07:02 09/18/24 07:02 09/18/24 07:02 09/18/24 07:02
Physical Exam
Constitutional: No Acute Distress
Cardiovascular: Regular Rate and S1/S2; Negative Murmur or Rub
Pulmonary: Clear and Symmetric; Negative Wheezes or Rales
Gastrointestinal: Soft, Non Tender, Non Distended and Normal Bowel Sounds
Musculoskeletal: Other (negative hip swelling bilaterally, no tenderness)
Skin: Warm and Dry; Negative Rash or Jaundice
Objective Data
Lab Data
Lab Results
09/18/24 05:42
09/18/24 05:42
ESR 53 mm/hour (0-20) H 09/17/24 06:51
Estimated Creat Clear 110 ml/min 09/18/24 05:42
Total Bilirubin 0.4 mg/dl (0.2-1.3) 09/18/24 05:42
AST 27 U/L (17-59) 09/18/24 05:42
ALT 54 U/L (0-50) H 09/18/24 05:42
Alkaline Phosphatase 54 U/L (38-126) 09/18/24 05:42
C-Reactive Protein 48.30 mg/L (0.0-10.00) H 09/18/24 05:42
Most recent labs reviewed.
uric acid 3.6
Micro Results:
09/16/24 07:31 Blood Culture - Preliminary
Blood/Venous No Growth in 48 hours- Final report to follow
09/16/24 07:31 Blood Culture - Preliminary
Blood/Venous No Growth in 48 hours- Final report to follow
09/16/24 06:59 Body Fluid Culture - Preliminary
Joint Fluid No Growth After 18-24 Hours
Gram Stain - Preliminary
Imaging:
09/15/2024 CT lower extremity: Moderate to large left hip joint effusion. Large left-sided varicocele.
[2024-09-18 09:11] LABS: TSH Reflex To Free T4 1.15 uIU/ml (0.47-4.68)
[2024-09-18 09:13] LABS: Uric Acid 4.3 mg/dl (3.5-8.5)
[2024-09-18 09:16] LABS: Erythrocyte Sed Rate 62 mm/hour (0-20)
[2024-09-18 10:13] LABS: Urine Albumin Negative (Neg - Trace); Urine Bilirubin Negative (Negative); Urine Character Clear (Clear); Urine Color Yellow; Urine Glucose Negative (Negative); Urine Ketone Negative (Negative); Urine Leukocyte Negative (Negative); Urine Nitrite Negative (Negative); Urine Occult Blood Negative (Negative); Urine Specific Gravity 1.005 (<1.030); Urine Urobilinogen Negative (Neg - 1+)
--- NOTE | 2024-09-18 10:47 | W.PN.HOSP.TC ---
Today's Communication/Plan
-
dc to home
Assessment / Plan
Assessment / Plan
Assessment:
L hip pain, effusion with possible septic arthritis
- CT: moderate to large left hip joint effusion
- MRI: Moderate to large left hip joint effusion, asymmetric compared to the right. There is some enhancing peripheral synovium within the distended left hip joint, a nonspecific finding suggesting synovitis. There is enhancement of the muscles
adjacent to the left hip joint, in the anterior and posterior proximal thigh adjacent to the proximal femur. Findings would suggest muscular inflammation/myositis. There is no evidence of a soft tissue collection to suggest an abscess.
- s/p IR aspiration 09/16; WBC 88081, no crystals. cultures so far negative. stop Abx as per ID. and ok for dc home. Lyme testing pending
- d/w Rheumatology and extended workup sent. with negative infectious workup, ok for NSAIDs and medrol dose pack
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
DVT ppx: Lovenox
Code: Full
Anticipated Discharge: Today
Subjective/Interval History
-
Date of Service: September 18, 2024
resting comfortably, no complaints, ambulating well
Objective Data
-
Labs:
Laboratory Results
09/18/24
05:42
WBC 6.9
Hgb 14.1
Hct 41.2
Plt Count 286
Sodium 141
Potassium 4.5
Chloride 105
Carbon Dioxide 32 H
BUN 15
Creatinine 1.0
Glucose 126 H
Calcium 9.2
Total Bilirubin 0.4
AST 27
ALT 54 H
Alkaline Phosphatase 54
Vital Signs:
Vital Signs
Temp Pulse Resp BP Pulse Ox
98.2 F 85 18 104/75 99
09/18/24 07:02 09/18/24 07:02 09/18/24 07:02 09/18/24 07:02 09/18/24 07:02
I&O
09/17/24 09/18/24 09/19/24
06:59 06:59 06:59
Intake Total 1380 / 1380
Balance 1380 / 1380
Physical Exam
-
General: No Apparent Distress
HEENT: Normocephalic and Atraumatic
Respiratory: Negative Wheezes
Cardiac: Regular Rhythm and S1/S2
GI: Soft and Nontender
Musculoskeletal: No Edema
Neuro: AO x 3
Psych: Calm
Data Reviewed
-
Total Time Spent with Patient (in minutes): 42
Labs: Labs Reviewed by me
--- NOTE | 2024-09-18 11:15 | W.DS.TRANS ---
DC Summary - Auto Glass Worker
-
Discharge Instructions:
Discharge Diagnosis/Procedures L hip joint effusion s/p IR drainage 08/17 and
also myositis (muscle inflammation)
Diet Regular
Activity As tolerated
Instructions:
Stand-Alone Forms:
Changes to Home Medications: No
Discharge Medications:
DC Medications w/original date entered in [facility]
acetaminophen 325 mg tablet 650 mg (2 x 325 mg) PO Q4HPRN PRN mild pain/POLLOCK/temp> 100.4F #100 tabs 09/18/24
ibuprofen 200 mg tablet 400 mg (2 x 200 mg) PO Q6HPRN PRN mild to moderate pain #100 tabs 09/18/24
methylprednisolone 4 mg tablets in a dose pack (Medrol (Maury)) See Rx Instructions PO .COMPLEX #21 ea 09/18/24
Home Medication Changes
Pending Results: No
Total time spent discharging patient (in min): 41
--- NOTE | 2024-09-18 12:08 | PTCARENOTE ---
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
[2024-09-18 12:09] VITALS: BP 108/73
[2024-09-20 11:15] LABS: Lyme Antibody Screen, EIA Negative (Negative)
[2024-09-20 11:15] LABS: Rheumatoid Agglutinin Less Than 10 IU (<10 IU)
[2024-09-20 18:52] LABS: Hepatitis B Surface Antigen Negative (Negative)
[2024-09-20 19:09] LABS: Hepatitis B Surface Antibody Negative; Hepatitis C Antibody Negative (Negative)
== END 2024-09-18 12:12 | disposition home or self-care (01) | DRG 550 ==
LOC: 4 EAST ACU 15:28
PROVIDERS: Radiology Vascular & Interventional Radiology; ADMITTING PHYSICIAN Internal Medicine; ATTENDING PHYSICIAN Internal Medicine; CONSULT PHYSICIAN Internal Medicine Infectious Disease; CONSULT PHYSICIAN Orthopaedic Surgery; EMERGENCY PHYSICIAN Emergency Medicine; FAMILY PHYSICIAN Family Medicine
PROC: 0S9B3ZZ Drainage of Left Hip Joint, Percutaneous Approach (ICD-10-PCS; 2024-09-16)
DX: M00.9 Pyogenic arthritis, unspecified (principal); I86.1 Scrotal varices; M60.9 Myositis, unspecified
CPT/HCPCS: 20610; 73723; 77002; 80048; 80053; 81003; 82248; 82550; 82945; 83615; 84443; 84550; 85025; 85027; 85652; 86140; 86430; 86618; 86706; 86803; 87015; 87040; 87070; 87205; 87340; 87476; 89051; 89060; 96365; 96366; 96375; 97116; 97162; 99284; A9575